=== PATIENT | female | born 1955 | race Caucasian/White ===

== ENCOUNTER → 2016-11-27 | Outpatient (CLI) | payer OTHER ==
[~2016-11-27] VITALS: Ht 157.5 cm; Wt 104.3 kg
[~2016-11-27] MED LIST: AMLO10TA2 PO; BUDE180INH INH; FECAL MICROBIOTA PREPARATION 250 ML BTL (J3590) XX ONE; LIDOCAINE 2% INJ 100 MG/5 ML SDV (FOR ANES.) As Ordered ONE; LOSA100T36 PO; NS 1,000 ML IV ONE; PRIL20CA9 PO; PROBCAP4 PO; PROPOFOL 500 MG/50 ML VIAL As Ordered ONE; SING10TA32 PO; VANC250C2 PO; ZYRT10CA PO
--- NOTE | 2016-11-27 14:28 | ROOR ---
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 Procedure: Pre-Anesthesia Assessment: - The heart rate, respiratory rate, oxygen saturations, blood pressure, adequacy of pulmonary ventilation, and response to care were monitored throughout the procedure. The Colonoscope was introduced through the anus and advanced to the cecum, identified by appendiceal orifice and ileocecal valve. The colonoscopy was performed without difficulty. The patient tolerated the procedure well. The quality of the bowel preparation was excellent. Findings: The perianal and digital rectal examinations were normal. Non-bleeding internal hemorrhoids were found during retroflexion. The hemorrhoids were small and Grade I (internal hemorrhoids that do not prolapse). Multiple small and large-mouthed diverticula were found in the recto-sigmoid colon, sigmoid colon and descending colon. The exam was otherwise without abnormality on direct and retroflexion views. Fecal Microbiota Transplant (Bacteriotherapy): Donor stool was prepared by a GI department computer field technician as per protocol. Approximately 250 mL of the emulsified donor stool was instilled in the cecum. A detailed colonoscopic exam could not be performed upon scope withdrawal secondary to limited visibility from the instilled stool. The exam was otherwise without abnormality on direct and retroflexion views. Impression: - Non-bleeding internal hemorrhoids. - Diverticulosis in the recto-sigmoid colon, in the sigmoid colon and in the descending colon. - The examination was otherwise normal on direct and retroflexion views. - The examination was otherwise normal on direct and retroflexion views. - Fecal Microbiota Transplant (Bacteriotherapy) performed in the cecum. - No specimens collected. - The exam was otherwise normal to the cecum. Recommendation: - Patient has a contact number available for emergencies. The signs and symptoms of potential delayed complications were discussed with the patient. Return to normal activities tomorrow. Written discharge instructions were provided to the patient. - Resume previous diet. - Discharge patient to home. - Repeat colonoscopy in 10 years for screening purposes. - Return to referring physician. - The findings and recommendations were discussed with the patient's family. Messi Su MD Messi Su MD 11/27/2016 2:27:52 PM This report has been signed electronically. Number of Addenda: 0 Note Initiated On: 11/27/2016 2:06 PM Estimated Blood Loss: Estimated blood loss: none.
[2016-11-27 15:00] VITALS: BP 130/63
== END | disposition home or self-care (01) ==
LOC: M OPP 12:58
PROVIDERS: ATTEND Internal Medicine Gastroenterology
DX: A04.7 Enterocolitis due to Clostridium difficile (principal); K64.0 First degree hemorrhoids; K57.30 Diverticulosis of large intestine without perforation or abscess without bleeding; I10 Essential (primary) hypertension; R60.0 Localized edema; M19.90 Unspecified osteoarthritis, unspecified site; J68.4 Chronic respiratory conditions due to chemicals, gases, fumes and vapors; K21.9 Gastro-esophageal reflux disease without esophagitis; K29.70 Gastritis, unspecified, without bleeding; I80.9 Phlebitis and thrombophlebitis of unspecified site; Z88.8 Allergy status to other drugs, medicaments and biological substances; Z88.5 Allergy status to narcotic agent; Z88.0 Allergy status to penicillin; Z79.899 Other long term (current) drug therapy

== ENCOUNTER 2023-10-14 10:50 | Day surgery (SDC) | payer MEDICARE ==
[~2023-10-14] VITALS: Ht 154.9 cm; Wt 85.9 kg
[~2023-10-14 10:50] MED LIST changes: -AMLO10TA2 PO; +AMLO1TAB24 PO; +AMLO1TAB25 PO; +BSS IRR 500ML/OMIDRIA 4ML IRR BAG (OR ONLY) As Ordered ONE; +CAND32TA18 PO; +CEFUROXIME 1MG/0.1ML INTRACAMERAL INJ As Ordered ONE; +CETI10CH PO; +D-MAPOW4 PO; +ESTR62CR PV; -FECAL MICROBIOTA PREPARATION 250 ML BTL (J3590) XX ONE; +FLUTISP NARES; +IBUP200T46 PO; +LIDOCAINE 1% SDV 5ML VIAL As Ordered ONE; -LIDOCAINE 2% INJ 100 MG/5 ML SDV (FOR ANES.) As Ordered ONE; -LOSA100T36 PO; +LOSA100T46 PO; +MONT-5 PO; +MULTIPLE SUPPLEMENTS; -NS 1,000 ML IV ONE; +OMEP10CASR PO; +PROBCAP14 PO; -PROPOFOL 500 MG/50 ML VIAL As Ordered ONE; -SING10TA32 PO; -VANC250C2 PO; +VANC250C3 PO
[2023-10-14] MEDS: PROPARACAINE 0.5% OPHTH SOL 15ML OD ONE (11:41)
[2023-10-14] MEDS: TROPICAMIDE 1% OPHTH SOLN 15ML OD SCH (11:41)
[2023-10-14] MEDS: ATROPINE SULFATE 1% OPHTH SOLN 2ML BTL OD SCH (11:41)
[2023-10-14] MEDS: PHENYLEPHRINE 2.5% OPHTH SOL 2ML OD SCH (11:41)
[2023-10-14] MEDS: OFLOXACIN 0.3 % (OCUFLOX) OPTH SOL 5ML OD SCH (11:42)
[2023-10-14] MEDS ORDERED: fentaNYL 100 MCG/2 ML INJECTION As Ordered ONE (12:35)
[2023-10-14] MEDS ORDERED: MIDAZOLAM INJ 2MG/2ML VIAL As Ordered ONE (12:35)
[2023-10-14 12:50] VITALS: BP 131/63; TEMP 97.6; O2SAT 98
== END 2023-10-14 13:30 | disposition home or self-care (01) ==
LOC: M SDC 10:50
PROVIDERS: ATTEND Ophthalmology
DX: H25.11 Age-related nuclear cataract, right eye (principal); I10 Essential (primary) hypertension; R60.0 Localized edema; K21.9 Gastro-esophageal reflux disease without esophagitis; J70.5 Respiratory conditions due to smoke inhalation; Z79.899 Other long term (current) drug therapy; Z88.5 Allergy status to narcotic agent; Z88.8 Allergy status to other drugs, medicaments and biological substances
CPT/HCPCS: 66984; J0697; J1097; J2250; J3010; V2632